=== PATIENT | male | born 1960 | race Caucasian/White ===

== ENCOUNTER 2017-10-28 20:26 | Emergency (ER) | payer BC, OTHER ==
[2017-10-28] MEDS ORDERED: NA CHLORIDE 0.9% 1,000 ML ONE (21:09)
[2017-10-28 21:37] LABS: Absolute Lymphocytes (CBC) 2.1 K/uL (0.7-4.9); Absolute Monocytes 0.7 K/uL (0.1-1.3); Absolute Neutrophil 4.4 K/uL (1.8-8.0); Basophils % 0.7 % (0-1.3); Eosinophils % 2.4 % (0-4.4); Hematocrit 39.1 % (39.6-49.0); Lymphocytes % 28.3 % (15.3-44.8); MCV 84.3 fL (80-100); MPV 8.5 fL (7.6-11.3); Monocytes % 9.8 % (3.3-12.3); RBC Red Blood Cell Count 4.64 M/uL (4.33-5.43)
[2017-10-28 21:52] LABS: Albumin 3.8 g/dL (3.4-5.0); Bilirubin Direct 0.2 mg/dL (0-0.2); Bilirubin Total 1.3 mg/dL (0.2-1.0); Potassium 4.7 mmol/L (3.5-5.1)
[2017-10-28 21:55] LABS: Urine Blood NEGATIVE (NEG); Urine Glucose 2+ (NEG); Urine Protein NEGATIVE (NEG); Urine Specific Gravity 1.015 (1.005-1.030); Urine pH 5.5 (5.0-7.0)
[2017-10-28 21:58] LABS: Urine Bacteria <20 /HPF (NONE SEEN); Urine Culture Reflex Order NOT NEEDED; Urine RBC <5 /HPF (NONE SEEN)
--- NOTE | 2017-10-28 23:52 | ER ---
Nurse's Notes [facility] Name: Kade Anton Age: 57 yrs Sex: Male : 1960 Arrival Date: 10/28/2017 Time: 20:26 Bed 7 Private MD: Diagnosis: Diabetes. Abdominal pain Presentation: 10/28 20:39 Presenting complaint: states: "We can't get his blood sugar down, hes not on aj1 medication. He has an appointment with Dr Reynolds but his sugars have been anywhere from 315 to 387." Also reports dizziness, light headedness, fatigue, blurred vision and abdominal pain. Patient states he was on Metformin, but it made his blood sugar too low so he stopped taking it a year ago and began just controlling his sugar with his diet, but lately they have not been able to get it under control. Transition of care: patient was not received from another setting of care. Onset of symptoms was September 2017. Risk Assessment: Do you want to hurt yourself or someone else? Patient reports no desire to harm self or others. Initial Sepsis Screen: Does the patient meet any 2 criteria? No. Patient's initial sepsis screen is negative. Does the patient have a suspected source of infection?. Care prior to arrival: None. 20:39 Method Of Arrival: Ambulatory aj1 20:39 Acuity: SHERINE 3 aj1 Triage Assessment: 20:44 General: Appears in no apparent distress. comfortable, Behavior is calm, cooperative, aj1 appropriate for age. Pain: Complains of pain in abdomen Pain currently is 2 out of 10 on a pain scale. Neuro: Level of Consciousness is awake, alert, obeys commands. Cardiovascular: Patient's skin is warm and dry. 20:45 Respiratory: Airway is patent Respiratory effort is even, unlabored, Respiratory aj1 pattern is regular, symmetrical. GI: Reports lower abdominal pain, upper abdominal pain, nausea. Derm: Skin is pink, warm \\T\\ dry. normal. Musculoskeletal: Circulation, motion, and sensation intact. Historical: - Allergies: 20:44 No Known Allergies; aj1 - Home Meds: 20:44 olmesartan-hydrochlorothiazide oral 40-12.5 mg oral once daily [Active]; pioglitazone aj1 15 mg oral tab 1 tab once daily [Active]; atorvastatin 40 mg oral tab 1 tab once daily [Active]; - PMHx: 20:44 Diabetes - NIDDM; Hyperlipidemia; Hypertension; aj1 - Immunization history:: Flu vaccine is not up to date. - Social history:: Smoking status: Patient/guardian denies using tobacco. - Ebola Screening: : Patient denies travel to an Ebola-affected area in the 21 days before illness onset. Screenin:10 Abuse screen: Denies threats or abuse. Denies injuries from another. Nutritional aa1 screening: No deficits noted. Tuberculosis screening: No symptoms or risk factors identified. Fall Risk None identified. Assessment: 21:10 General: Appears in no apparent distress. comfortable, Behavior is calm, cooperative, aa1 appropriate for age. Pain: Complains of pain in left upper quadrant and right upper quadrant Pain currently is 2 out of 10 on a pain scale. Quality of pain is described as aching. Neuro: Level of Consciousness is awake, alert, obeys commands, Oriented to person, place, time, situation, Moves all extremities. Full function Gait is steady, Speech is normal, Facial symmetry appears normal, Reports dizziness. Cardiovascular: Reports lightheadedness, Denies chest pain, diaphoresis, palpitations, shortness of breath, Heart tones S1 S2 present Rhythm is regular. Respiratory: Airway is patent Respiratory effort is even, unlabored, Respiratory pattern is regular, symmetrical. GI: Abdomen is non-distended, Abd is soft X 4 quads. : No signs and/or symptoms were reported regarding the genitourinary system. EENT: No signs and/or symptoms were reported regarding the EENT system. Derm: Skin is intact, is healthy with good turgor, Skin is pink, warm \\T\\ dry. Musculoskeletal: Circulation, motion, and sensation intact. Capillary refill < 3 seconds. 22:06 Reassessment: Patient appears in no apparent distress at this time. Patient and/or aa1 family updated on plan of care and expected duration. Pain level reassessed. Patient is alert, oriented x 3, equal unlabored respirations, skin warm/dry/pink. Left msg for CT that pt has finished drinking PO contrast. 23:59 Reassessment: Patient appears in no apparent distress at this time. Patient is alert, aa1 oriented x 3, equal unlabored respirations, skin warm/dry/pink. Discussed d/c \\T\\ f/u instructions with pt \\T\\ spouse; denies questions or concerns at this time Patient states feeling better. Vital Signs: 20:45 BP 113 / 77; Pulse 65; Resp 18; Temp 98.0; Pulse Ox 98% ; Weight 99.79 kg; Height 6 ft. aj1 0 in. (182.88 cm); Pain 2/10; 21:38 BP 107 / 66; Pulse 65; Resp 18; Pulse Ox 97% on R/A; Pain 0/10; aa1 22:39 BP 113 / 73; Pulse 66; Resp 16; Pulse Ox 98% on R/A; Pain 0/10; aa1 20:45 Body Mass Index 29.84 (99.79 kg, 182.88 cm) aj1 ED Course: 20:26 Patient arrived in ED. ds1 20:42 Triage completed. aj1 20:45 Tang Disla MD is Attending Physician. pkl 20:45 Arm band placed on Patient placed in an exam room. aj1 21:09 Carolina Hong RN is Primary Nurse. aa1 21:10 Patient has correct armband on for positive identification. Placed in gown. Bed in low aa1 position. Call light in reach. Pulse ox on. NIBP on. 21:15 Initial lab(s) drawn, by ED staff, sent to lab. Urine collected: clean catch specimen, aa1 clear. Inserted saline lock: 20 gauge in left antecubital area, using aseptic technique. ,using aseptic technique. by SHOAIB Sage Blood collected. 23:02 Abdomen In Process Unspecified. EDMS 23:24 CT completed. Patient tolerated procedure well. Patient moved to VT via wheelchair. Patient moved back from VT. 23:59 No provider procedures requiring assistance completed. IV discontinued, intact, aa1 bleeding controlled, No redness/swelling at site. Pressure dressing applied. Administered Medications: 21:19 Drug: NS 0.9% 1000 ml Route: IV; Rate: 1000 ml; Site: left antecubital; aa1 22:00 Follow up: IV Status: Completed infusion aa1 Point of Care Testing: Blood Glucose: 20:51 Blood Glucose: 244 mg/dL; aa1 Ranges: Outcome: 23:51 Discharge ordered by . pkl 23:59 Discharged to home ambulatory, with significant other. aa1 23:59 Condition: good 23:59 Discharge instructions given to patient, significant other, Instructed on discharge instructions, follow up and referral plans. medication usage, Demonstrated understanding of instructions, follow-up care, medications, Prescriptions given X 2. 10/29 00:00 Patient left the ED. aa1 Signatures: Dispatcher [employer] EDKristy Downey RN RN aj1 Carolina Hong RN RN aa1 Tang Disla MD MD pkl Hagler, Ervin eh [facility], [facility]
--- NOTE | 2017-10-28 23:52 | EDPHYS ---
Physician Documentation [facility] Name: Kade Anton Age: 57 yrs Sex: Male : 1960 Arrival Date: 10/28/2017 Time: 20:26 Bed 7 Private MD: ED Physician Tang Disla HPI: 10/28 21:04 This 57 yrs old Male presents to ER via Ambulatory with complaints of High pkl Blood Sugar. 21:04 The patient or guardian reports hyperglycemia. Onset: The symptoms/episode pkl began/occurred 1 year(s) ago. Associated signs and symptoms: Pertinent positives: polyuria, Abdominal pain. Patient said he has not been taking any diabetes medications for over a year.. Historical: - Allergies: 20:44 No Known Allergies; aj1 - Home Meds: 20:44 olmesartan-hydrochlorothiazide oral 40-12.5 mg oral once daily [Active]; pioglitazone aj1 15 mg oral tab 1 tab once daily [Active]; atorvastatin 40 mg oral tab 1 tab once daily [Active]; - PMHx: 20:44 Diabetes - NIDDM; Hyperlipidemia; Hypertension; aj1 - Immunization history:: Flu vaccine is not up to date. - Social history:: Smoking status: Patient/guardian denies using tobacco. - Ebola Screening: : Patient denies travel to an Ebola-affected area in the 21 days before illness onset. ROS: 21:04 Eyes: Negative for injury, pain, redness, and discharge, ENT: Negative for injury, pkl pain, and discharge, Neck: Negative for injury, pain, and swelling, Cardiovascular: Negative for chest pain, palpitations, and edema, Respiratory: Negative for shortness of breath, cough, wheezing, and pleuritic chest pain. 21:04 Abdomen/GI: Positive for abdominal pain, of the right upper quadrant and left upper quadrant. 21:04 Back: Negative for acute changes. 21:04 : Positive for polyuria. 21:04 MS/extremity: Negative for acute changes. 21:04 Skin: Positive for healing wound right hawkins. 21:04 Neuro: Negative for altered mental status. Exam: 21:04 Head/Face: Normocephalic, atraumatic. Eyes: Pupils equal round and reactive to light, pkl extra-ocular motions intact. Lids and lashes normal. Conjunctiva and sclera are non-icteric and not injected. Cornea within normal limits. Periorbital areas with no swelling, redness, or edema. ENT: Nares patent. No nasal discharge, no septal abnormalities noted. Tympanic membranes are normal and external auditory canals are clear. Oropharynx with no redness, swelling, or masses, exudates, or evidence of obstruction, uvula midline. Mucous membranes moist. Neck: Trachea midline, no thyromegaly or masses palpated, and no cervical lymphadenopathy. Supple, full range of motion without nuchal rigidity, or vertebral point tenderness. No Meningismus. Chest/axilla: Normal chest wall appearance and motion. Nontender with no deformity. No lesions are appreciated. Cardiovascular: Regular rate and rhythm with a normal S1 and S2. No gallops, murmurs, or rubs. Normal PMI, no JVD. No pulse deficits. Respiratory: Lungs have equal breath sounds bilaterally, clear to auscultation and percussion. No rales, rhonchi or wheezes noted. No increased work of breathing, no retractions or nasal flaring. 21:04 Abdomen/GI: Bowel sounds: normal, Palpation: soft, mild abdominal tenderness, in the right upper quadrant and left upper quadrant. 21:04 Back: Exam negative for acute changes. 21:04 : Exam negative for acute changes. 21:04 Musculoskeletal/extremity: Exam is negative for acute changes. 21:04 Skin: healing wound right hawkins. 21:04 Neuro: Orientation: is normal, Mentation: is normal, Cranial nerves: grossly normal, Cerebellar function: is grossly normal, Motor: is normal, Gait: is steady. Vital Signs: 20:45 BP 113 / 77; Pulse 65; Resp 18; Temp 98.0; Pulse Ox 98% ; Weight 99.79 kg; Height 6 ft. aj1 0 in. (182.88 cm); Pain 2/10; 21:38 BP 107 / 66; Pulse 65; Resp 18; Pulse Ox 97% on R/A; Pain 0/10; aa1 22:39 BP 113 / 73; Pulse 66; Resp 16; Pulse Ox 98% on R/A; Pain 0/10; aa1 20:45 Body Mass Index 29.84 (99.79 kg, 182.88 cm) aj1 MDM: 20:45 Patient medically screened. pkl 23:50 Data reviewed: vital signs, nurses notes, lab test result(s), radiologic studies, CT pkl scan. 10/28 21:03 Order name: Amylase, Serum; Complete Time: 22:12 pkl 10/28 21:03 Order name: Basic Metabolic Panel; Complete Time: 22:12 pkl 10/28 21:03 Order name: CBC with Diff; Complete Time: 22:12 pkl 10/28 21:03 Order name: Creatinine for Radiology; Complete Time: 21:48 pkl 10/28 21:03 Order name: Hepatic Function; Complete Time: 22:12 pkl 10/28 21:03 Order name: Lipase; Complete Time: 22:12 pkl 10/28 21:03 Order name: Urine Microscopic Only; Complete Time: 22:12 pkl 10/28 21:03 Order name: IV Saline Lock; Complete Time: 21:19 pkl 10/28 21:03 Order name: Hemoglobin A1c pkl 10/28 21:17 Order name: Urine Dipstick--Ancillary (enter results); Complete Time: 22:12 10/28 22:37 Order name: Abdomen EDRI 10/28 23:01 Order name: Hemoglobin A1c; Complete Time: 23:45 EDRI 10/28 21:03 Order name: Labs collected and sent; Complete Time: 21:19 pkl 10/28 21:03 Order name: Urine Dipstick-Ancillary (obtain specimen); Complete Time: 21:17 pkl Administered Medications: 21:19 Drug: NS 0.9% 1000 ml Route: IV; Rate: 1000 ml; Site: left antecubital; aa1 22:00 Follow up: IV Status: Completed infusion aa1 Point of Care Testing: Blood Glucose: 20:51 Blood Glucose: 244 mg/dL; aa1 Ranges: Critical Glucose Levels:Adult <50 mg/dl or >400 mg/dl <40 mg/dl or >180 mg/dl Disposition: 10/28/17 23:51 Discharged to Home. Impression: Diabetes. Abdominal pain. - Condition is Stable. - Medication Reconciliation Form, Thank You Letter, Antibiotic Education, Prescription Opioid Use form. - Follow up: Private Physician; When: 7 - 10 days; Reason: Re-evaluation by your physician. - Problem is new. - Symptoms have improved. Signatures: Dispatcher [facility] Downey RN RN aj1 Carolina Hong RN RN aa1 Tang Disla MD MD pkl Corrections: (The following items were deleted from the chart) 22:37 21:03 Abdomen Pelvis W Con+CT.RAD.BRZ ordered. EDMS EDMS 10/29 00:00 10/28 23:51 10/28/2017 23:51 Discharged to Home. Impression: Diabetes. Abdominal pain. aa1 Condition is Stable. Forms are Medication Reconciliation Form, Thank You Letter, Antibiotic Education, Prescription Opioid Use. Follow up: Private Physician; When: 7 - 10 days; Reason: Re-evaluation by your physician. Problem is new. Symptoms have improved. pkl
[2017-10-29 00:24] VITALS: TEMP 98
[2017-10-29 00:27] VITALS: BP 113/73; O2SAT 98
--- NOTE | 2017-10-29 08:13 | RAD REPORT ---
EXAM DESCRIPTION: CT - Abdomen Pelvis Wo Contrast - 10/29/2017 5:17 am CLINICAL HISTORY: Abdominal pain. ABD PAIN COMPARISON: No comparisons TECHNIQUE: CT imaging of the abdomen and pelvis was performed without contrast. Solid organ, bowel a nd vascular assessment is limited due to lack of IV and oral contrast. All CT scans are performed using dose optimization technique as appropriate and may include automated exposure control or mA/KV adjustment according to patient size. FINDINGS: The lower lung de la garza are clear. The liver, spleen, pancreas, adrenal glands and kidneys are within normal limits for a limited non-co ntrast examination. No bowel obstruction, free air, free fluid or abscess. The appendix is normal. The osseous structures are within normal limits.Small fat containing inguinal hernias, larger on the right. IMPRESSION: No acute intra-abdominal or pelvic findings. A limited non-contrast examination was performed as detailed.
== END 2017-10-29 | disposition home or self-care (01) ==
LOC: ER 20:26
DX: E11.65 Type 2 diabetes mellitus with hyperglycemia (principal); I10 Essential (primary) hypertension; E78.5 Hyperlipidemia, unspecified
CPT/HCPCS: 36415; 74176; 80048; 80076; 81003; 81015; 82150; 82962; 83036; 83690; 85025; 96360; 99284; J7030

== ENCOUNTER → 2023-05-24 | Emergency (ER) | payer OTHER ==
[~2023-05-24] MED LIST: NA CHLORIDE 0.9% 1,000 ML ONE
[2023-05-24 12:18] LABS: Absolute Lymphocytes (CBC) 0.2 K/uL (0.7-4.9); Lymphocytes % 1.5 % (15.3-44.8); MCV 82.8 fL (80-100); MPV 7.6 fL (7.6-11.3); Platelets 236 thou/uL (152-406); RBC Red Blood Cell Count 5.19 M/uL (4.33-5.43)
[2023-05-24 12:38] LABS: Albumin 2.7 g/dL (3.4-5.0); Protein, Total 7.4 g/dL (6.4-8.2)
[2023-05-24 12:39] LABS: Potassium 4.6 mEq/L (3.5-5.1)
[2023-05-24 12:51] LABS: Blood Morphology Comment NOT SEEN (NOT SEEN); Platelet Estimate ADEQ; White Blood Cell Scan OK (OK)
--- NOTE | 2023-05-24 13:59 | RAD REPORT ---
EXAM DESCRIPTION: CT - Abdomen Pelvis W Contrast - 05/24/2023 12:58 pm CLINICAL HISTORY: ABD PAIN COMPARISON: 10/28/2017 TECHNIQUE: Thin cut axial CT imaging of the abdomen and pelvis was performed following intravenous a dministration of 100 mL Isovue 300. Multiplanar reformats were generated and reviewed. All CT scans are performed using dose optimization technique as appropriate and may include automated exposure control or mA/KV adjustment according to patient size. FINDINGS: No suspicious findings in the lung bases. The liver, spleen, adrenal glands, and pancreas show no suspicious findings. Gallbladder and biliary tree are also without suspicious finding. Symmetric renal function is seen with no hydronephrosis or suspicious renal mass. Mildly prominent small bowel loops throughout the abdomen with short-segment air-fluid levels. No dis crete transition point. Fluid opacification throughout the proximal colon as well. No bowel wall thic kening. No free air, free fluid or inflammatory stranding. Small bilateral inguinal hernias containin g fat No suspicious mass or bulky lymphadenopathy. The urinary bladder is without significant finding . No suspicious bony findings. IMPRESSION: Mildly dilated small bowel loops with air-fluid levels with no clear transition point. F indings may relate to ongoing enteritis or mild ileus.
--- NOTE | 2023-05-24 14:21 | ER ---
Nurse's Notes [facility] Name: Kade Anton Age: 63 yrs Sex: Male : 1960 Arrival Date: 05/24/2023 Time: 11:20 Bed 11 Private MD: Diagnosis: Gastroenteritis Presentation: 05/24 11:32 Chief complaint: Patient states: WOKE FROM SLEEP AT 0400 WITH STOMACH CRAMPING, NAUSEA, bp VOMITING AND DIARRHEA. Coronavirus screen: At this time, the client does not indicate any symptoms associated with coronavirus-19. Ebola Screen: No symptoms or risks identified at this time. Initial Sepsis Screen: Does the patient meet any 2 criteria? No. Patient's initial sepsis screen is negative. Does the patient have a suspected source of infection? No. Patient's initial sepsis screen is negative. Risk Assessment: Do you want to hurt yourself or someone else? Patient reports no desire to harm self or others. Onset of symptoms was May 24, 2023 at 04:00. 11:32 Method Of Arrival: Ambulatory bp 11:32 Acuity: SHERINE 3 bp Triage Assessment: 11:33 General: Appears in no apparent distress. Behavior is calm, cooperative, appropriate bp for age. Pain: Denies pain. GI: Reports cramping, diarrhea, nausea, vomiting. Historical: - Allergies: 11:33 No Known Allergies; bp - PMHx: 11:33 Diabetes - NIDDM; Hyperlipidemia; Hypertension; bp - Immunization history:: Adult Immunizations up to date. - Social history:: Smoking status: . - Family history:: not pertinent. Screenin:14 [facility] ED Fall Risk Assessment (Adult) Score/Fall Risk Level 0 - 2 = Low Risk nj1 Oriented to surroundings, Maintained a safe environment, Hourly rounding (assess needs \T\ fall precautionary measures) done. Abuse screen: Denies threats or abuse. Denies injuries from another. Nutritional screening: On. Tuberculosis screening: No symptoms or risk factors identified. Assessment: 12:00 General: Appears in no apparent distress. comfortable, Behavior is calm, cooperative, nj1 appropriate for age. 12:00 Pain: Complains of pain in abdomen Pain currently is 2 out of 10 on a pain scale. nj1 Neuro: Level of Consciousness is awake, alert, obeys commands, Oriented to person, place, time, situation. Cardiovascular: Patient's skin is warm and dry. Respiratory: Airway is patent Respiratory effort is even, unlabored. GI: Reports lower abdominal pain, upper abdominal pain, Patient currently denies nausea. 14:22 Reassessment: Patient appears in no apparent distress at this time. Patient and/or nj1 family updated on plan of care and expected duration. Pain level reassessed. Patient is alert, oriented x 3, equal unlabored respirations, skin warm/dry/pink. Patient denies pain at this time. Patient states feeling better. Patient states symptoms have improved. Vital Signs: 11:32 BP 128 / 89; Pulse 81; Resp 16; Temp 97.8; Pulse Ox 100% ; bp 14:22 BP 105 / 65; Pulse 95; Resp 18; Pulse Ox 98% ; Pain 0/10; nj1 14:22 Pain Scale: Adult nj1 ED Course: 11:23 Patient arrived in ED. im 11:25 Jason Darden MD is Attending Physician. rt 11:33 Triage completed. bp 11:33 Arm band placed on. bp 11:45 Nasrin Ramirez, SOHAIB is Primary Nurse. nj1 12:00 Patient has correct armband on for positive identification. Bed in low position. Call nj1 light in reach. Provided Education on: Call light, fall precautions. 12:07 Inserted saline lock: 20 gauge in left antecubital area, using aseptic technique. Blood nj1 collected. 12:59 CT Abd/Pelvis - IV Contrast Only In Process Unspecified. EDMS 14:35 No provider procedures requiring assistance completed. IV discontinued, intact, nj1 bleeding controlled. Administered Medications: 12:07 Drug: NS 0.9% IV 1000 ml IV at 1 bolus Per protocol; 1000 mL bolus Route: IV; Rate: 1 nj1 bolus; Site: left antecubital; 14:23 Follow up: Response: No adverse reaction; IV Status: Completed infusion; IV Intake: nj1 1000ml Medication: 14:36 VIS not applicable for this client. nj1 Intake: 14:23 IV: 1000ml; Total: 1000ml. nj1 Outcome: 14:21 Discharge ordered by . rt 14:35 Discharged to home ambulatory, nj1 14:35 Condition: stable 14:35 Discharge instructions given to patient, Instructed on discharge instructions, follow up and referral plans. medication usage, Demonstrated understanding of instructions, follow-up care, medications, Prescriptions given X 2, 14:36 Patient left the ED. nj1 Signatures: Dispatcher [employer] EDGarfield Fitzpatrick RN RN Jason Mason MD MD rt Nasrin Ramirez RN RN nj1 Pema Welch
--- NOTE | 2023-05-24 14:21 | EDPHYS ---
Physician Documentation [facility] Name: Kade Anton Age: 63 yrs Sex: Male : 1960 Arrival Date: 05/24/2023 Time: 11:20 Bed 11 Private MD: ED Physician Jason Darden HPI: 05/24 16:25 This 63 yrs old Male presents to ER via Ambulatory with complaints of Abdominal Pain, rt Vomiting. 16:25 Patient presents to the ED with abdominal pain, nausea, vomiting, diarrhea starting rt overnight. Patient states that the pain has significantly improved, with a mild nausea and the diarrhea has mostly abated. Patient attributes this to eating a pork tamale last night for dinner. Denies other acute complaints at this time, symptoms were moderate severity, now mild. No other aggravating or elevating factors.. Historical: - Allergies: : No Known Allergies; bp - PMHx: :33 Diabetes - NIDDM; Hyperlipidemia; Hypertension; bp - Immunization history:: Adult Immunizations up to date. - Social history:: Smoking status: . - Family history:: not pertinent. ROS: 16:25 Constitutional: Negative for fever, chills, and weight loss, Cardiovascular: Negative rt for chest pain, palpitations, and edema, Respiratory: Negative for shortness of breath, cough, wheezing, and pleuritic chest pain, MS/Extremity: Negative for injury and deformity, Skin: Negative for injury, rash, and discoloration, Neuro: Negative for headache, weakness, numbness, tingling, and seizure, Psych: Negative for depression, anxiety, suicide ideation, homicidal ideation, and hallucinations, 16:25 Abdomen/GI: Positive for abdominal pain, nausea, vomiting, and diarrhea, Exam: 16:25 Constitutional: This is a well developed, well nourished patient who is awake, alert, rt and in no acute distress. Head/Face: Normocephalic, atraumatic. Chest/axilla: Normal chest wall appearance and motion. Nontender with no deformity. No lesions are appreciated. Cardiovascular: Regular rate and rhythm with a normal S1 and S2. No gallops, murmurs, or rubs. Normal PMI, no JVD. No pulse deficits. Respiratory: Lungs have equal breath sounds bilaterally, clear to auscultation and percussion. No rales, rhonchi or wheezes noted. No increased work of breathing, no retractions or nasal flaring. Abdomen/GI: Soft, non-tender, with normal bowel sounds. No distension or tympany. No guarding or rebound. No evidence of tenderness throughout. Skin: Warm, dry with normal turgor. Normal color with no rashes, no lesions, and no evidence of cellulitis. MS/ Extremity: Pulses equal, no cyanosis. Neurovascular intact. Full, normal range of motion. Neuro: Awake and alert, GCS 15, oriented to person, place, time, and situation. Cranial nerves II-XII grossly intact. Motor strength 5/5 in all extremities. Sensory grossly intact. Cerebellar exam normal. Normal gait. Psych: Awake, alert, with orientation to person, place and time. Behavior, mood, and affect are within normal limits. Vital Signs: 11:32 BP 128 / 89; Pulse 81; Resp 16; Temp 97.8; Pulse Ox 100% ; bp 14:22 BP 105 / 65; Pulse 95; Resp 18; Pulse Ox 98% ; Pain 0/10; nj1 14:22 Pain Scale: Adult nj1 MDM: 11:35 Patient medically screened. rt 16:25 Differential diagnosis: Gastroenteritis, bowel obstruction, enteritis, electrolyte rt disturbance, pancreatitis. Data reviewed: vital signs, nurses notes, lab test result(s), radiologic studies. I considered the following discharge prescriptions or medication management in the emergency department Medications were administered in the Emergency Department. See MAR. Independent interpretation of the following test(s) in the Emergency Department CT Scan: My interpretation is No bowel obstruction some interpretation of CT scan images. Care significantly affected by the following chronic conditions: Diabetes. Counseling: I had a detailed discussion with the patient and/or guardian regarding the historical points, exam findings, and any diagnostic results supporting the discharge/admit diagnosis, lab results, radiology results, the need for outpatient follow up. 05/24 11:36 Order name: CBC with Diff; Complete Time: 12:52 rt 05/24 11:36 Order name: CMP; Complete Time: 12:52 rt 05/24 11:36 Order name: Lipase; Complete Time: 12:52 rt 05/24 12:21 Order name: CBC Smear Scan; Complete Time: 12:52 EDMS 05/24 12:51 Order name: Manual Differential; Complete Time: 12:52 EDMS 05/24 11:36 Order name: CT Abd/Pelvis - IV Contrast Only; Complete Time: 14:10 rt 05/24 11:36 Order name: IV Saline Lock; Complete Time: 12:13 rt 05/24 11:36 Order name: Labs collected and sent; Complete Time: 12:12 rt Administered Medications: 12:07 Drug: NS 0.9% IV 1000 ml IV at 1 bolus Per protocol; 1000 mL bolus Route: IV; Rate: 1 nj1 bolus; Site: left antecubital; 14:23 Follow up: Response: No adverse reaction; IV Status: Completed infusion; IV Intake: nj1 1000ml Disposition Summary: 05/24/23 14:21 Discharge Ordered Notes: Location: Home rt Problem: new rt Symptoms: have improved rt Condition: Stable rt Diagnosis - Gastroenteritis rt Followup: rt - With: Private Physician - When: 2 - 3 days - Reason: Discharge Instructions: - Discharge Summary Sheet rt - Viral Gastroenteritis, Adult rt Forms: - Medication Reconciliation Form rt - Thank You Letter rt - Antibiotic Education rt - Prescription Opioid Use rt - Patient Portal Instructions rt - Leadership Thank You Letter rt Prescriptions: - ondansetron 4 mg Oral Tablet,disintegrating - take 1 tablet ORAL route every 6 hours .; 15 tablet; Refills: 0, Product rt Selection Permitted - dicyclomine 10 mg Oral capsule - take 1 capsule ORAL route 3 times per day; 15 capsule; Refills: 0, Product rt Selection Permitted Signatures: Dispatcher [employer] EDGarfield Fitzpatrick, Jason Roberts RN, MD MD rt Nasrin Ramirez RN RN nj1
[2023-05-24 16:08] VITALS: BP 105/65; TEMP 97.8; O2SAT 98
== END ==
LOC: ER 11:20
DX: K52.9 Noninfective gastroenteritis and colitis, unspecified (principal)
CPT/HCPCS: 85025; 36415; 83690; 80053; 74177; Q9967; J7030

== ENCOUNTER 2024-06-01 17:38 | Emergency (ER) | payer OTHER ==
[2024-06-01] MEDS ORDERED: IBUPROFEN 400 MG TAB ONE (19:45)
--- NOTE | 2024-06-01 20:07 | RAD REPORT ---
EXAMINATION: XR Foot Right 3 View CLINICAL INDICATION: Male, 64 years old. [facility] MAIN PAIN Bed Name: [id number] TECHNIQUE: 3 view radiographs of the left foot were obtained. COMPARISON: No prior exam. FINDINGS: No evidence of fracture or dislocation. Normal alignment. No evidence of arthropathy or oth er focal bone lesion. Soft tissues are unremarkable. Calcaneal spur and enthesopathy at the Achilles tendon attachment. No significant degenerative changes. IMPRESSION: No acute osseous abnormalities. Chronic findings as above.
--- NOTE | 2024-06-01 20:57 | EDPHYS ---
Physician Documentation [facility] Name: Kade Anton Age: 64 yrs Sex: Male : 1960 Arrival Date: 06/01/2024 Time: 17:38 Bed DX1 Private MD: ED Samuel Harden HPI: 06/01 19:55 This 64 yrs old Male presents to ER via Ambulatory with complaints of Foot Injury - cp right. 19:55 The patient presents with pain, that is acute. The complaints affect the lateral aspect cp of left foot. 19:55 Context: resulted from an unknown cause, the patient can fully bear weight, the patient cp is able to ambulate, with mild difficulty, Problem is a result from a previous injury: No. Onset: The symptoms/episode began/occurred 2 day(s) ago. Associated signs and symptoms: The patient has no apparent associated signs or symptoms. Historical: - Allergies: 18:04 No Known Allergies; me1 - PMHx: 18:04 Diabetes - NIDDM; Hyperlipidemia; Hypertension; me1 - PSHx: 18:04 bone spur surgery (Hypertension); Operative procedure on knee; me1 - Immunization history:: Adult Immunizations up to date. - Infectious Disease History:: Denies. - Social history:: Smoking status: Patient denies any tobacco usage or history of. ROS: 20:00 Constitutional: Negative for fever, cp 20:00 Back: Negative for pain at rest, pain with movement, 20:00 MS/extremity: Positive for pain, tenderness, of the lateral aspect of left foot, Negative for injury or acute deformity, 20:00 Neuro: Negative for numbness, weakness, 20:00 All other systems are negative, Exam: 20:05 Constitutional: The patient appears in no acute distress, alert, awake, non-toxic, well cp developed, well nourished, uncomfortable, 20:05 Head/Face: Normocephalic, atraumatic. cp 20:05 Back: pain, is absent, ROM is normal, 20:05 Musculoskeletal/extremity: Extremities: noted in the lateral aspect of heel of left foot: pain, tenderness, There is no evidence of erythema, swelling, skin warm/dry/intact, Perfusion: the extremity is normally perfused throughout, the left foot Sensation intact. Vital Signs: 18:03 BP 144 / 91; Pulse 75; Resp 16; Temp 98.2; Pulse Ox 99% ; Weight 104.33 kg; Height 6 me1 ft. 0 in. ; Pain 8/10; 18:03 Body Mass Index 31.19 (104.33 kg, 182.88 cm) me1 18:03 Pain Scale: Adult me1 MDM: 20:57 Medical Screening Exam initiated cp 20:57 Data reviewed: vital signs, nurses notes, radiologic studies, plain films, and as a cp result, I will discharge patient. 06/01 18:11 Order name: XRAY Foot RIGHT 3 View; Complete Time: 20:35 cp 06/01 20:35 Interpretation: Report reviewed. cp 06/01 20:55 Order name: Crutches cp 06/01 20:55 Order name: Walking boot cp Administered Medications: 19:52 Drug: Ibuprofen PO 800 mg PO once Route: PO; me1 20:37 Follow up: Response: No adverse reaction; Pain is decreased me1 Disposition: 06/02 20:59 Chart complete. cp Disposition Summary: 06/01/24 20:57 Discharge Ordered Notes: Location: Home cp Problem: new cp Symptoms: have improved cp Condition: Stable cp Diagnosis - Pain in right foot cp Followup: cp - With: Saad Pedroza MD - When: 1 week - Reason: pain continues Discharge Instructions: - Discharge Summary Sheet cp - Foot Pain cp Forms: - Medication Reconciliation Form cp - Antibiotic Education cp - Prescription Opioid Use cp - Patient Portal Instructions cp - Leadership Thank You Letter cp Prescriptions: - Anaprox DS 550 mg Oral Tablet - take 1 tablet ORAL route every 12 hours As needed; 20 tablet; Refills: 0, cp Product Selection Permitted Addendum: 23:26 Co-signature as Attending Physician, Samuel Mcnamara MD I agree with the assessment and c mckeon plan of care. Signatures: Dispatcher [employer] Samuel Ricardo MD MD cha Page, Corey PA PA cp Silvana Valiente RN RN me1 Corrections: (The following items were deleted from the chart) 06/01 18:11 18:11 Foot Right 3 View+[email or web address] ordered. [facility] 06/02 20:51 20:00 MS/extremity: Positive for pain, tenderness, of the lateral aspect of left foot, cp Negative for injury or acute deformity, cp 20:51 20:00 Constitutional: Negative for fever, cp cp 20:51 20:00 Back: Negative for pain at rest, pain with movement, cp cp 20: 20:00 Neuro: Negative for numbness, weakness, cp cp 20: 20:00 All other systems are negative, cp cp
--- NOTE | 2024-06-01 20:57 | ER ---
Nurse's Notes [facility] Name: Kade Anton Age: 64 yrs Sex: Male : 1960 Arrival Date: 06/01/2024 Time: 17:38 Bed DX1 Private MD: Diagnosis: Pain in right foot Presentation: 06/01 18:03 Chief complaint: Patient states: c/o pain to right lateral foot x 2 days. Denies me1 injury. Coronavirus screen: Vaccine status: Patient reports receiving the 2nd dose of the covid vaccine. Ebola Screen: No symptoms or risks identified at this time. Initial Sepsis Screen: Does the patient meet any 2 criteria? No. Patient's initial sepsis screen is negative. Does the patient have a suspected source of infection? No. Patient's initial sepsis screen is negative. Risk Assessment: Do you want to hurt yourself or someone else? Patient reports no desire to harm self or others. Onset of symptoms was May 30, 2024. 18:03 Method Of Arrival: Ambulatory me1 18:03 Acuity: SHERINE 4 me1 Historical: - Allergies: 18:04 No Known Allergies; me1 - PMHx: 18:04 Diabetes - NIDDM; Hyperlipidemia; Hypertension; me1 - PSHx: 18:04 bone spur surgery (Hypertension); Operative procedure on knee; me1 - Immunization history:: Adult Immunizations up to date. - Infectious Disease History:: Denies. - Social history:: Smoking status: Patient denies any tobacco usage or history of. Vital Signs: 18:03 BP 144 / 91; Pulse 75; Resp 16; Temp 98.2; Pulse Ox 99% ; Weight 104.33 kg; Height 6 me1 ft. 0 in. ; Pain 8/10; 18:03 Body Mass Index 31.19 (104.33 kg, 182.88 cm) me1 18:03 Pain Scale: Adult me1 ED Course: 17:41 Patient arrived in ED. im 17:46 Samuel Wilson PA is PHCP. cp 17:46 Samuel Mcnamara MD is Attending Physician. cp 18:04 Triage completed. me1 18:04 Arm band placed on Patient placed in waiting room. me1 19:52 XRAY Foot RIGHT 3 View In Process Unspecified. EDMS 20:37 Silvana Valiente, RN is Primary Nurse. me1 20:55 Saad Pedroza MD is Referral Physician. cp Administered Medications: 19:52 Drug: Ibuprofen PO 800 mg PO once Route: PO; me1 20:37 Follow up: Response: No adverse reaction; Pain is decreased me1 Outcome: 20:57 Discharge ordered by . cp 21:32 Patient left the ED. br2 Signatures: Dispatcher [employer] EDMS Samuel Wilson PA PA cp Pema Welch Michelle, SHOAIB RN me1 Shi Hernandez RN RN br2
[2024-06-01 21:36] VITALS: BP 144/91; TEMP 98.2; O2SAT 99
== END 2024-06-01 21:32 | disposition home or self-care (01) ==
LOC: ER 17:38
DX: M79.672 Pain in left foot (principal)
CPT/HCPCS: 99282